=== PATIENT | female | born 2000 | race Caucasian/White ===

== ENCOUNTER 2020-06-12 06:41 | Emergency (ER) | payer BC, OTHER ==
--- NOTE | 2020-06-12 08:18 | RAD ---
RADIOGRAPH LEFT WRIST 3 VIEWS: DATE: 06/12/2020 HISTORY: 19-year-old female with left wrist pain FINDINGS: No fracture is identified. However, if there is snuffbox tenderness following trauma that suggests an occult scaphoid fracture, then the general recommendation is immobilization and follow-up imaging in 5-10 days. Alignment is normal. Joint spaces are maintained without erosions or large osteophytes. There are no abnormal soft tissue calcifications. No evidence of periostitis, permeative lesion, osteolytic lesion, or osteoblastic lesion. IMPRESSION: Normal radiograph of wrist.
== END 2020-06-12 07:45 | disposition home or self-care (01) ==
LOC: MADERS 06:41
DX: S52.502A Unspecified fracture of the lower end of left radius, initial encounter for closed fracture (principal); D64.9 Anemia, unspecified; X50.1XXA Overexertion from prolonged static or awkward postures, initial encounter
CPT/HCPCS: 25600

== ENCOUNTER 2021-03-28 18:05 | Emergency (ER) | payer BC, OTHER | END 2021-03-28 18:45 | disposition left against medical advice (07) | LOC: MADERS 18:05 | DX: Z53.21 Procedure and treatment not carried out due to patient leaving prior to being seen by health care provider (principal) ==

== ENCOUNTER 2021-09-13 13:52 | Emergency (ER) | payer OTHER, SELFPAY ==
[2021-09-13 14:58] LABS: Bilirubin Negative (Negative); Blood, Urine Large (Negative); Clarity Hazy (Clear); Glucose, Urine (Dipstick) Negative (Negative); Ketone, Urine Negative (Negative); Leukocyte Negative (Negative); Nitrite Negative (Negative); Protein, Urine (Dipstick) Negative (Neg-Trace); Urobilinogen 0.2 mg/dL (Less than 2)
[2021-09-13 15:05] LABS: Bacteria/HPF Rare-Few HPF (None Seen); WBC/HPF None Seen HPF (0-3)
[2021-09-13 15:14] LABS: ALT (SGPT) 8 U/L (8-55); AST (SGOT) 15 U/L (5-34); Alkaline Phosphatase 60 U/L (40-110); Anion Gap 10 mmol/L (10-20); BUN (Urea Nitrogen) 5 mg/dL (7.0-18.7); Bilirubin, Total 0.9 mg/dL (0.2-1.2); Calc. Creatinine Clearance 0 mL/min (70-130); Carbon Dioxide 25 mmol/L (22-29); Chloride 108 mmol/L (98-107); Globulin 2.5 g/dL (2.4-3.5); Glucose 91 mg/dL (70-105); Potassium 4.1 mmol/L (3.5-5.1); Protein, Total 6.5 g/dL (6.0-8.3); Sodium 139 mmol/L (136-145)
[2021-09-13 15:23] LABS: #Eosinphils 0.1 thou/uL (0.0-0.7); #Lymphocytes 1.6 thou/uL (1.20-3.40); #Monocytes 0.4 thou/uL (0.11-0.59); #Neutrophils 2.9 thou/uL (1.40-6.50); %Basophils 0.8 % (0.0-1.0); %Eosinophils 1.9 % (0.0-10.0); %Lymphocytes 31.5 % (21.0-51.0); %Monocytes 7.5 % (0.0-10.0); %Neutrophils 58.2 % (42.0-75.0); Hemoglobin 12.5 g/dL (12.0-16.0); Mean Corpuscular Hemoglobin 29.1 pg (27.0-31.0); Mean Corpuscular Volume 88.2 fL (78.0-98.0); Mean Platelet Volume 9.6 fL (7.4-10.4); Platelet Count 187 thou/uL (130-400); RBC Distribution Width 11.7 % (11.5-14.5); Red Blood Cell (RBC) Count 4.29 mill/uL (4.20-5.40)
[2021-09-14 15:16] LABS: Chlamydia by PCR Not Detected (NotDetected); GC by PCR Not Detected (NotDetected)
== END 2021-09-13 16:32 | disposition home or self-care (01) ==
LOC: MADERS 13:52
DX: O20.0 Threatened abortion (principal); F17.210 Nicotine dependence, cigarettes, uncomplicated; Z3A.01 Less than 8 weeks gestation of pregnancy
CPT/HCPCS: 36415; 76815; 80053; 81003; 81015; 84702; 85025; 86900; 86901; 87480; 87491; 87510; 87591; 87660

== ENCOUNTER 2021-09-15 14:11 | Emergency (ER) | payer SELFPAY | END 2021-09-15 15:55 | disposition home or self-care (01) | LOC: MADERS 14:11 | DX: O20.0 Threatened abortion (principal); Z3A.01 Less than 8 weeks gestation of pregnancy | CPT/HCPCS: 36415; 84702; 99284 ==

== ENCOUNTER 2023-12-17 12:31 | Emergency (ER) | payer SELFPAY ==
[2023-12-17] MEDS ORDERED: Lidocaine 1% w/Epinephrine 1:100K 20 ML VIAL ONE (13:17)
[2023-12-17] MEDS ORDERED: Bacitracin 1 PK ONE (13:50)
== END 2023-12-17 14:03 | disposition home or self-care (01) ==
LOC: MADERS 12:31
DX: S90.412A Abrasion, left great toe, initial encounter (principal); F17.210 Nicotine dependence, cigarettes, uncomplicated; F17.290 Nicotine dependence, other tobacco product, uncomplicated; W22.8XXA Striking against or struck by other objects, initial encounter
CPT/HCPCS: 99283

== ENCOUNTER 2024-05-28 19:02 | Emergency (ER) | payer OTHER, SELFPAY | END 2024-05-28 19:10 | disposition left against medical advice (07) | LOC: MADERS 19:02 | DX: Z53.21 Procedure and treatment not carried out due to patient leaving prior to being seen by health care provider (principal) ==